=== PATIENT | male | born 1985 | race Hispanic/Latino ===

== ENCOUNTER 2024-05-20 18:08 | Emergency (ER) | payer OTHER ==
[~2024-05-20] VITALS: Ht 177.8 cm; Wt 110.7 kg
[~2024-05-20 18:08] MED LIST: CYCLOBENZAPRINE5 MG PO
[2024-05-20] MEDS ORDERED: IOPAMIDOL 370 MG/ML 100 ML INFUS..BTL INJ ONE (19:21)
[2024-05-20] MEDS: FAMOTIDINE 20 MG/2 ML VIAL IV STA (19:39)
[2024-05-20 21:03] VITALS: PULSE 70; RESP 16; TEMP 97.8
[2024-05-20 21:08] VITALS: BP 132/77; PULSE 70; RESP 16; TEMP 97.8; O2SAT 96
== END 2024-05-20 21:11 | disposition home or self-care (01) ==
LOC: FSED 18:32
DX: R10.84 Generalized abdominal pain (principal); K21.9 Gastro-esophageal reflux disease without esophagitis; K76.0 Fatty (change of) liver, not elsewhere classified; I10 Essential (primary) hypertension; E78.5 Hyperlipidemia, unspecified
CPT/HCPCS: 74177; 80053; 85025; 99284; Q9967

== ENCOUNTER 2025-01-20 05:02 | Emergency (ER) | payer OTHER ==
[~2025-01-20] VITALS: Ht 177.8 cm; Wt 107.5 kg
[2025-01-20 05:09] VITALS: PULSE 100; RESP 20; TEMP 98.9
[2025-01-20] MEDS: HYDROCODONE/APAP 5MG-325MG TAB PO ONE (05:47)
[2025-01-20] MEDS: ONDANSETRON HCL 4 MG ORAL DISINTEGRATING TAB PO ONE (05:47)
[2025-01-20] MEDS: KETOROLAC TROMETHAMINE 30 MG/ML VIAL IM ONE (05:47)
[2025-01-20] MEDS ORDERED: FAMOTIDINE20 MG PO (05:48)
[2025-01-20] MEDS ORDERED: INDOMETHACIN25 MG PO (05:48)
[2025-01-20 05:58] VITALS: BP 155/90; O2SAT 98
== END 2025-01-20 06:01 | disposition home or self-care (01) ==
LOC: FSED 05:20
DX: M25.562 Pain in left knee (principal); M25.462 Effusion, left knee; X50.1XXA Overexertion from prolonged static or awkward postures, initial encounter; Y92.89 Other specified places as the place of occurrence of the external cause; I10 Essential (primary) hypertension; E78.5 Hyperlipidemia, unspecified; G89.29 Other chronic pain
CPT/HCPCS: 96372; 99283; J1885; Q0162